=== PATIENT | male | born 1985 | race Asian ===

== ENCOUNTER 2016-10-28 11:15 | Emergency (ER) | payer BC, OTHER ==
[~2016-10-28] VITALS: Ht 167.6 cm; Wt 65.8 kg
[2016-10-28] MEDS ORDERED: SODIUM CHLORIDE 0.9% 500 ML IV ONE (11:32)
[2016-10-28] MEDS ORDERED: ONDANSETRON HCL 4 MG/2 ML VIAL IV ONE (11:45)
[2016-10-28] MEDS ORDERED: HYDROmorphone HCL 2 MG/ML VL IV ONE ×2 (11:45→13:30)
[2016-10-28 13:05] LABS: Basophils # (auto) 0 uL; Basophils % (auto) 0.1 % (0.0-2.0); Eosinophils # (auto) 0 uL; Eosinophils % (auto) 0.1 % (0.0-7.0); Hematocrit 45.4 % (41.0-53.0); Hemoglobin 15.4 g/dL (13.5-17.5); Lymphocytes # (auto) 1.3 uL; Mean Corpuscular Hgb Conc. 33.9 g/dL (32.0-36.0); Mean Corpuscular Volume 91.6 fL (80.0-100.0); Mean Platelet Volume 8.6 fL (7.4-10.4); Monocytes # (auto) 0.9 uL; Monocytes % (auto) 4.6 % (0.0-12.0); Neutrophils # (auto) 16.8 uL; Neutrophils % (auto) 88.2 % (37.0-80.0); Platelet Count (auto) 248 10^3/uL (140-450); Red Cell Distribution Width 12.9 % (11.6-16.0)
[2016-10-28 13:19] LABS: INR 0.98 (0.9-1.15); Partial Thromboplastin Time 25.2 sec (22.64-33.71); Prothrombin Time 10.7 sec (9.37-12.3)
[2016-10-28 13:44] LABS: Albumin 4.3 g/dL (3.4-5.0); BUN/Creatinine Ratio 14.5; Bilirubin, Total 0.3 mg/dL (0.2-1.0); Calcium 9.2 mg/dL (8.5-10.1); Potassium 3.9 mmol/L (3.5-5.1); Total Protein 7.4 g/dL (6.4-8.2)
[2016-10-28] MEDS ORDERED: IOHEXOL 300 MG/ML 100ML BOTTLE IJ ONE (14:02)
[2016-10-28 14:25] VITALS: BP 133/73
[2016-10-28 15:08] LABS: Hematocrit 39.6 % (41.0-53.0); Hemoglobin 13.4 g/dL (13.5-17.5)
== END 2016-10-28 14:37 | disposition short-term general hospital (02) ==
LOC: EDBD 11:15 → ER 11:23
DX: S22.41XA Multiple fractures of ribs, right side, initial encounter for closed fracture (principal); J93.9 Pneumothorax, unspecified; S09.90XA Unspecified injury of head, initial encounter; S50.11XA Contusion of right forearm, initial encounter; S40.011A Contusion of right shoulder, initial encounter; S70.01XA Contusion of right hip, initial encounter; F17.210 Nicotine dependence, cigarettes, uncomplicated; V86.59XA Driver of other special all-terrain or other off-road motor vehicle injured in nontraffic accident, initial encounter; Y93.89 Activity, other specified; Y99.8 Other external cause status; Y92.89 Other specified places as the place of occurrence of the external cause
CPT/HCPCS: 36415; 70450; 71250; 72125; 73090; 73502; 74177; 80053; 85014; 85018; 85025; 85610; 85730; 96374; 96375; 96376; 99291; J1170; J2405; J7040; Q9967